=== PATIENT | male | born 1960 | race Caucasian/White ===

== ENCOUNTER 2018-08-24 19:43 | Emergency (ER) | payer MEDICARE, OTHER ==
[~2018-08-24 19:43] MED LIST: THIAMINE 100 MG TAB PO SCH
[2018-08-24] MEDS ORDERED: THIAMINE 100 MG/ML 2 ML VIAL IM STA (20:14)
[2018-08-24] MEDS ORDERED: LORazepam 2 MG/ML INJ IV PRN ×3 (20:14)
[2018-08-24] MEDS ORDERED: SODIUM CHLORIDE 0.9% 500 ML 500 ML IV STA (20:14)
[2018-08-24 20:55] LABS: Basophils # (A) 0.1 k/uL (0-0.2); Basophils % (A) 1 %; Eosinophils # (A) 0.7 k/uL (0-0.7); Eosinophils % (A) 7 %; HCT 45.9 % (39.0-53.0); HGB 15.3 gm/dL (13.0-17.5); Lymphocytes # (A) 4.3 k/uL (1.0-4.8); Lymphocytes % (A) 41 %; MCH 31.5 pg (25.0-35.0); MCHC 33.3 g/dL (31.0-37.0); MCV 94.7 fL (80.0-100.0); Mean Platelet Volume 7.8; Monocytes # (A) 0.5 k/uL (0-1.0); Monocytes % (A) 5 %; Neutrophils # (A) 4.2 k/uL (1.3-7.7); Neutrophils % (A) 41 %; Platelet Count 327 k/uL (150-450); RBC 4.85 m/uL (4.30-5.90); RDW 14.6 % (11.5-15.5); WBC 10.4 k/uL (3.8-10.6)
[2018-08-24 20:58] LABS: Glucose,Whole Blood 100 mg/dL (75-99)
[2018-08-24] MEDS ORDERED: THIAMINE 100 MG TAB PO SCH (21:00)
[2018-08-24 21:03] LABS: INR 0.9 (<1.2)
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
[2018-08-24 21:06] LABS: ALT 38 U/L (21-72); AST 47 U/L (17-59); Alkaline Phosphatase 122 U/L (38-126); Amphetamine Screen,Urine Not Detected (NotDetected); Anion Gap 17 mmol/L; Barbiturate Screen,Urine Not Detected (NotDetected); Benzodiazepines Screen,Urine Not Detected (NotDetected); Blood Urea Nitrogen 18 mg/dL (9-20); Calcium 10.6 mg/dL (8.4-10.2); Carbon Dioxide 20 mmol/L (22-30); Chloride 112 mmol/L (98-107); Cocaine Screen,Urine Not Detected (NotDetected); Glucose 98 mg/dL (74-99); Lipase 184 U/L (23-300); Magnesium 1.8 mg/dL (1.6-2.3); Methadone Screen, Urine Not Detected (NotDetected); Opiate Screen,Urine Not Detected (NotDetected); Oxycodone Screen, Urine Not Detected (NotDetected); Phencyclidine Screen,Urine Not Detected (NotDetected); Phosphorus 4.3 mg/dL (2.5-4.5); Potassium 4.2 mmol/L (3.5-5.1); Sodium 149 mmol/L (137-145); Total Bilirubin 0.4 mg/dL (0.2-1.3); Total Protein 8.5 g/dL (6.3-8.2); Tricyclic Antidepressant,Urine Detected (NotDetected); Urn Cannabinoid Scrn Not Detected (NotDetected)
[2018-08-24 21:17] LABS: Alcohol 299 mg/dL
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
[2018-08-25 04:53] VITALS: RESP 20
[2018-08-25 06:45] VITALS: BP 126/81; PULSE 88; TEMP 97.8
== END 2018-08-25 06:45 | disposition home or self-care (01) ==
LOC: EC 19:43
DX: F10.129 Alcohol abuse with intoxication, unspecified (principal); F17.200 Nicotine dependence, unspecified, uncomplicated; Z53.8 Procedure and treatment not carried out for other reasons
CPT/HCPCS: 36415; 80053; 83690; 83735; 84100; 85025; 85610; 80306; 72125; 70450; 99284; 96374; 96376; 96361; 96372; G0480; J2060; J3411; 80320; 82075

== ENCOUNTER 2018-09-01 03:50 | Inpatient (IN) | payer MEDICARE, OTHER ==
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
[2018-09-01] MEDS ORDERED: HYDROcodone/APAP 10-325MG 1 EACH TAB PO ONE (04:16)
[2018-09-01 05:58] LABS: Basophils # (A) 0.1 k/uL (0-0.2); Basophils % (A) 1 %; Eosinophils # (A) 0.4 k/uL (0-0.7); Eosinophils % (A) 5 %; HCT 42.1 % (39.0-53.0); HGB 14.9 gm/dL (13.0-17.5); Lymphocytes # (A) 3.4 k/uL (1.0-4.8); Lymphocytes % (A) 43 %; MCH 32.4 pg (25.0-35.0); MCHC 35.4 g/dL (31.0-37.0); MCV 91.3 fL (80.0-100.0); Mean Platelet Volume 7.1; Monocytes # (A) 0.3 k/uL (0-1.0); Monocytes % (A) 3 %; Neutrophils # (A) 3.5 k/uL (1.3-7.7); Neutrophils % (A) 45 %; Platelet Count 241 k/uL (150-450); RBC 4.61 m/uL (4.30-5.90); RDW 14.4 % (11.5-15.5); WBC 7.8 k/uL (3.8-10.6)
[2018-09-01 06:08] LABS: ALT 49 U/L (21-72); AST 61 U/L (17-59); Albumin 4.5 g/dL (3.5-5.0); Alkaline Phosphatase 101 U/L (38-126); Anion Gap 14 mmol/L; Blood Urea Nitrogen 11 mg/dL (9-20); Calcium 9.8 mg/dL (8.4-10.2); Carbon Dioxide 26 mmol/L (22-30); Chloride 105 mmol/L (98-107); Glucose 106 mg/dL (74-99); Potassium 3.5 mmol/L (3.5-5.1); Sodium 145 mmol/L (137-145); Total Bilirubin 0.5 mg/dL (0.2-1.3); Total Protein 7.9 g/dL (6.3-8.2)
[2018-09-01] MEDS ORDERED: NALOXONE 0.4 MG/ML 1 ML VIAL IV PRN (06:22)
[2018-09-01 06:23] LABS: Alcohol 260 mg/dL; Creatine Kinase 1062 U/L (55-170)
[2018-09-01] MEDS: SODIUM CHLORIDE 0.9% 1,000 ML IV SCH ×4 (06:49→20:24)
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
[2018-09-01] MEDS: HYDROcodone/APAP 5-325MG 1 EACH TAB PO PRN ×2 (11:42→15:58)
[2018-09-01 12:16] LABS: ALT 44 U/L (21-72); AST 53 U/L (17-59); Albumin 3.9 g/dL (3.5-5.0); Alkaline Phosphatase 81 U/L (38-126); Anion Gap 10 mmol/L; Blood Urea Nitrogen 14 mg/dL (9-20); Calcium 8.9 mg/dL (8.4-10.2); Carbon Dioxide 25 mmol/L (22-30); Chloride 108 mmol/L (98-107); Glucose 92 mg/dL (74-99); Potassium 3.6 mmol/L (3.5-5.1); Sodium 143 mmol/L (137-145); Total Bilirubin 0.4 mg/dL (0.2-1.3); Total Protein 6.8 g/dL (6.3-8.2)
[2018-09-01 12:20] LABS: Creatine Kinase 832 U/L (55-170)
[2018-09-01 12:33] LABS: Creatine Kinase MB 8.7 ng/mL (0.0-2.4); Troponin I <0.012 ng/mL (0.000-0.034)
[2018-09-01] MEDS ORDERED: LORazepam 2 MG/ML INJ IV PRN ×4 (13:44)
[2018-09-01] MEDS: QUEtiapine 50 MG TAB PO SCH (17:14)
[2018-09-01] MEDS: METOPROLOL TARTRATE 50 MG TAB PO SCH (20:23)
[2018-09-01] MEDS: QUEtiapine 400 MG TAB PO SCH (20:23)
[2018-09-01] MEDS: cloNIDine HCL 0.1 MG TAB PO SCH (20:23)
[2018-09-02] MEDS: SODIUM CHLORIDE 0.9% 1,000 ML IV SCH ×5 (01:44→20:30)
[2018-09-02] MEDS: lamoTRIgine 100 MG TAB PO SCH (07:16)
[2018-09-02] MEDS: THIAMINE 100 MG TAB PO SCH (07:16)
[2018-09-02] MEDS: QUEtiapine 50 MG TAB PO SCH ×2 (07:16→17:14)
[2018-09-02] MEDS: METOPROLOL TARTRATE 50 MG TAB PO SCH ×2 (07:16→20:29)
[2018-09-02] MEDS: LISINOPRIL 20 MG TAB PO SCH (07:16)
[2018-09-02] MEDS: FLUoxetine HCL 20 MG CAP PO SCH (07:16)
[2018-09-02] MEDS: cloNIDine HCL 0.1 MG TAB PO SCH ×2 (07:17→20:29)
[2018-09-02] MEDS: HYDROcodone/APAP 5-325MG 1 EACH TAB PO PRN ×3 (07:19→20:29)
[2018-09-02 08:33] LABS: Cholesterol 166 mg/dL (<200); Creatine Kinase 429 U/L (55-170); HDL Cholesterol 45 mg/dL (40-60); LDL Cholesterol,Calculated 54 mg/dL (0-99); Triglycerides 334 mg/dL (<150)
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
[2018-09-02] MEDS: QUEtiapine 400 MG TAB PO SCH (20:29)
[2018-09-03] MEDS: SODIUM CHLORIDE 0.9% 1,000 ML IV SCH ×2 (05:28→08:18)
[2018-09-03] MEDS: cloNIDine HCL 0.1 MG TAB PO SCH ×2 (06:03→20:58)
[2018-09-03] MEDS: LISINOPRIL 20 MG TAB PO SCH (06:03)
[2018-09-03] MEDS: THIAMINE 100 MG TAB PO SCH (08:18)
[2018-09-03] MEDS: FLUoxetine HCL 20 MG CAP PO SCH (08:18)
[2018-09-03] MEDS: METOPROLOL TARTRATE 50 MG TAB PO SCH ×2 (08:18→20:59)
[2018-09-03] MEDS: QUEtiapine 50 MG TAB PO SCH ×2 (08:18→17:25)
[2018-09-03] MEDS: lamoTRIgine 100 MG TAB PO SCH (08:18)
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
[2018-09-03 10:12] LABS: Anion Gap 7 mmol/L; Blood Urea Nitrogen 10 mg/dL (9-20); Calcium 8.6 mg/dL (8.4-10.2); Carbon Dioxide 26 mmol/L (22-30); Chloride 106 mmol/L (98-107); Creatine Kinase 228 U/L (55-170); Glucose 102 mg/dL (74-99); Potassium 3.5 mmol/L (3.5-5.1); Sodium 139 mmol/L (137-145)
--- NOTE | 2018-09-03 12:24 | ECHOF ---
Referral Reason:Chest pressure MEASUREMENTS -------- HEIGHT: 172.7 cm WEIGHT: 81.6 kg BP: 191/115 IVSd: 1.2 cm (0.6 - 1.1) LVIDd: 4.0 cm (3.9 - 5.3) LVPWd: 1.1 cm (0.6 - 1.1) IVSs: 1.7 cm LVIDs: 2.5 cm LVPWs: 1.5 cm LAESV Index (A-L): 28.77 ml/m Ao Diam: 3.0 cm (2.0 - 3.7) LA Diam: 3.0 cm (2.7 - 3.8) AV Cusp: 1.4 cm (1.5 - 2.6) EPSS: 3.2 cm MV E Remigio: 0.87 m/s MV DecT: 232 ms MV A Remigio: 0.39 m/s MV E/A Ratio: 2.22 RAP: 5.00 mmHg RVSP: 15.14 mmHg MV EF SLOPE: 197.82 mm/s (70 - 150) MV EXCURSION: 18.05 mm (> 18.000) FINDINGS -------- Sinus rhythm. This was a technically good study. The left ventricular size is normal. Left ventricular wall thickness is normal. Overall left vent ricular systolic function is normal with, an EF between 55 - 60 %. The right ventricle is normal in size. Normal LA size by volume 22+/-6 ml/m2. The right atrial size is normal. Interatrial and interventricular septum intact. The aortic valve is trileaflet and appears structurally normal. The mitral valve is normal. Mild mitral regurgitation is present. The tricuspid valve appears structurally normal. Trace tricuspid regurgitation present. There is no pulmonic regurgitation present. The aortic root size is normal. Normal inferior vena cava with normal inspiratory collapse consistent with estimated right atrial pre ssure of 5 mmHg. There is no pericardial effusion. CONCLUSIONS -------- 1. Sinus rhythm. 2. This was a technically good study. 3. The left ventricular size is normal. 4. Left ventricular wall thickness is normal. 5. Overall left ventricular systolic function is normal with, an EF between 55 - 60 %. 6. The right ventricle is normal in size. 7. Normal LA size by volume 22+/-6 ml/m2. 8. The right atrial size is normal. 9. Interatrial and interventricular septum intact. 10. The aortic valve is trileaflet and appears structurally normal. 11. The mitral valve is normal. 12. Mild mitral regurgitation is present. 13. The tricuspid valve appears structurally normal. 14. Trace tricuspid regurgitation present. 15. There is no pulmonic regurgitation present. 16. The aortic root size is normal. 17. Normal inferior vena cava with normal inspiratory collapse consistent with estimated right atrial pressure of 5 mmHg. 18. There is no pericardial effusion. MEND WORKER: Bere Diaz RDCS
[2018-09-03] MEDS: ACETAMINOPHEN TAB 325 MG TAB PO PRN (15:14)
[2018-09-03] MEDS: LORazepam 0.5 MG TAB PO PRN (15:16)
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
[2018-09-03] MEDS ORDERED: QUEtiapine 50 MG TAB PO SCH (21:00)
[2018-09-04] MEDS: cloNIDine HCL 0.1 MG TAB PO SCH (06:17)
[2018-09-04] MEDS: METOPROLOL TARTRATE 50 MG TAB PO SCH (08:15)
[2018-09-04] MEDS: THIAMINE 100 MG TAB PO SCH (08:15)
[2018-09-04] MEDS: FLUoxetine HCL 20 MG CAP PO SCH (08:15)
[2018-09-04] MEDS: QUEtiapine 50 MG TAB PO SCH (08:15)
[2018-09-04] MEDS: LISINOPRIL 20 MG TAB PO SCH (08:15)
[2018-09-04] MEDS: lamoTRIgine 100 MG TAB PO SCH (08:16)
[2018-09-04] MEDS: LORazepam 0.5 MG TAB PO PRN (08:18)
[2018-09-04] MEDS: ACETAMINOPHEN TAB 325 MG TAB PO PRN (08:18)
[2018-09-04 13:35] VITALS: BP 138/54; PULSE 58; RESP 18; TEMP 98.2
== END 2018-09-04 14:14 | disposition home or self-care (01) | DRG 558 ==
LOC: EC 03:50 → 4MS4W 06:22
PROVIDERS: ADMIT Family Medicine; ATTEND Family Medicine
DX: M62.82 Rhabdomyolysis (principal); F10.239 Alcohol dependence with withdrawal, unspecified; E78.1 Pure hyperglyceridemia; E78.5 Hyperlipidemia, unspecified; F10.229 Alcohol dependence with intoxication, unspecified; Y90.8 Blood alcohol level of 240 mg/100 ml or more; F17.210 Nicotine dependence, cigarettes, uncomplicated; F31.9 Bipolar disorder, unspecified; I10 Essential (primary) hypertension; I25.2 Old myocardial infarction; R29.6 Repeated falls; Z87.820 Personal history of traumatic brain injury; V29.9XXS Motorcycle rider (driver) (passenger) injured in unspecified traffic accident, sequela; Z59.0 Homelessness; Z79.899 Other long term (current) drug therapy; Z91.81 History of falling; Z99.3 Dependence on wheelchair; Z96.7 Presence of other bone and tendon implants
CPT/HCPCS: 36415; 80048; 80053; 80061; 80320; 82075; 82550; 82553; 84484; 85025; 93005; 93306; 99285